=== PATIENT | female | born 1990 | race Caucasian/White ===

== ENCOUNTER 2020-01-02 09:25 | Inpatient (IN) | payer BC ==
[~2020-01-02] VITALS: Ht 160 cm; Wt 60.2 kg
[~2020-01-02 09:25] MED LIST: ONDA8TAB9 PO
[2020-01-02] MEDS ORDERED: acetaminophen 325mg tablet PO PRN ×2 (11:35)
[2020-01-02] MEDS ORDERED: mag hydrox/Alum hydrox/simeth 30ml oral suspension PO PRN (11:35)
[2020-01-02] MEDS ORDERED: loperamide 2mg capsule PO PRN (11:35)
[2020-01-02] MEDS ORDERED: magnesium hydroxide 30ml (MOM) UD suspension PO PRN (11:35)
[2020-01-02] MEDS ORDERED: PANT40TA4 PO (12:53)
[2020-01-02] MEDS ORDERED: LAMO100T PO (12:53)
[2020-01-02] MEDS ORDERED: LISD40CA PO (12:53)
[2020-01-02] MEDS ORDERED: SERT100T10 PO (12:53)
[2020-01-02] MEDS ORDERED: LEVO15TA6 PO (12:53)
[2020-01-02] MEDS: LORazepam 1 MG tablet PO PRN ×2 (12:55→20:33)
[2020-01-02 13:21] VITALS: BP 93/41
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
[2020-01-02 20:00] VITALS: BP 118/61
[2020-01-02] MEDS ORDERED: albuterol 2.5 MG/3 ML nebule NEB PRN (20:25)
[2020-01-02] MEDS: Melatonin 3mg tablet PO SCH (20:33)
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
[2020-01-03 07:51] VITALS: BP 111/67
[2020-01-03] MEDS ORDERED: lamoTRIgine 100mg tablet PO SCH (08:00)
[2020-01-03] MEDS: sertraline 50mg tablet PO SCH (08:14)
[2020-01-03] MEDS: pantoprazole 40mg Tablet.DR PO SCH (08:14)
[2020-01-03] MEDS: sertraline 25mg tablet PO SCH (08:14)
[2020-01-03 08:54] LABS: HEMOGLOBIN A1C 5.5 % (4.5-6.2)
[2020-01-03 09:01] LABS: CHOL/HDL RATIO 5.1 (0.00-4.99); CHOLESTEROL 229 MG/DL (0-200); HDL CHOLESTEROL 45 MG/DL (35-60); LDL CHOLESTEROL 149 MG/DL (50-100); TRIGLYCERIDES 133 MG/DL (20-135)
[2020-01-03] MEDS: LORazepam 1 MG tablet PO PRN ×2 (14:46→20:29)
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
[2020-01-03] MEDS: LEVOMEFOLATE CALCIUM PO SCH (18:41)
[2020-01-03 20:00] VITALS: BP 108/60
[2020-01-03] MEDS: Melatonin 3mg tablet PO SCH (20:29)
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
[2020-01-04 07:53] VITALS: BP 113/73
[2020-01-04] MEDS: pantoprazole 40mg Tablet.DR PO SCH (07:56)
[2020-01-04] MEDS: sertraline 25mg tablet PO SCH (07:56)
[2020-01-04] MEDS: sertraline 50mg tablet PO SCH (07:56)
[2020-01-04] MEDS: lamoTRIgine 100mg tablet PO SCH (07:56)
[2020-01-04] MEDS: LEVOMEFOLATE CALCIUM PO SCH (07:57)
[2020-01-04] MEDS: LORazepam 1 MG tablet PO PRN ×2 (07:59→15:29)
[2020-01-04] MEDS ORDERED: pantoprazole 40mg Tablet.DR PO SCH (08:00)
[2020-01-04] MEDS ORDERED: sertraline 50mg tablet PO SCH (08:00)
[2020-01-04] MEDS ORDERED: LORazepam 1 MG tablet PO ONE (12:45)
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
[2020-01-04 20:00] VITALS: BP 113/70
[2020-01-04] MEDS: Melatonin 3mg tablet PO SCH (20:06)
[2020-01-04] MEDS ORDERED: prazosin 1mg capsule PO SCH (21:00)
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
[2020-01-05] MEDS: LORazepam 1 MG tablet PO PRN ×4 (02:14→20:16)
[2020-01-05 07:55] VITALS: BP 136/61
[2020-01-05] MEDS: pantoprazole 40mg Tablet.DR PO SCH (07:55)
[2020-01-05] MEDS: lamoTRIgine 100mg tablet PO SCH (07:55)
[2020-01-05] MEDS: sertraline 50mg tablet PO SCH (07:56)
[2020-01-05] MEDS: sertraline 25mg tablet PO SCH (07:56)
[2020-01-05] MEDS: LEVOMEFOLATE CALCIUM PO SCH (07:56)
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
--- NOTE | 2020-01-05 11:27 | NUR ---
This Clinician provided individual therapeutic services to Client within the medical milieu in her room on 01/05/20. This Clinician introduced himself to Client. This Clinician asked probing questions about Client's current behaviors and symptomatology. Client reported frustration that she was still in the unit and unable to go home. Client tearfully reported that she wanted to leave so that she could be with her two year old Son. This Clinician asked Client a scaling question regarding her level of depression with 1 being low, and 10 being high. Client reported her subjective number as a 8, which she decribed as feeling like a heavy sadness. Per this Clinician's impression, Client presented with labile affect, quickly transitioning from observed irritability to showing marked feelings of sadness, distress, and hopeless AEB tearful presentation. As a suggested CBT reframe, this Clinician encouraged Client to identify "Any hopeful, or positive thoughts" that she could identify to lower her level of depression, and from an 8 to a 7, while also making attempts to validate her subjective distress at being uncomfortable in her surroundings in order to develop initial rapport with Client. Aaron Aleman MA, JUANJO Addendum: 01/05/20 at 1137 by Aaron Aleman SS Amended: Links added.
[2020-01-05] MEDS ORDERED: hydrOXYzine 25 MG tablet PO ONE (15:40)
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
[2020-01-05] MEDS: Melatonin 3mg tablet PO SCH (20:16)
[2020-01-05 20:23] VITALS: BP 126/75
[2020-01-05] MEDS ORDERED: prazosin 1mg capsule PO SCH (21:00)
[2020-01-05] MEDS: hydrOXYzine 25 MG tablet PO PRN (22:27)
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
[2020-01-06] MEDS: lamoTRIgine 100mg tablet PO SCH (07:47)
[2020-01-06] MEDS: sertraline 50mg tablet PO SCH (07:47)
[2020-01-06] MEDS: sertraline 25mg tablet PO SCH (07:47)
[2020-01-06] MEDS: pantoprazole 40mg Tablet.DR PO SCH (07:47)
[2020-01-06] MEDS: hydrOXYzine 25 MG tablet PO PRN (07:49)
[2020-01-06] MEDS: LEVOMEFOLATE CALCIUM PO SCH (08:00)
[2020-01-06 08:12] VITALS: BP 116/60
--- NOTE | 2020-01-06 09:08 | NUR ---
DISCHARGE PLANNING Meg is going home today and her mother is able to pick her up. Scheduled her follow up appts with her PCP for tomorrow and with Dr Mcgee for 01/28/20. There is a wait-list at [facility] for therapy. Suggested Meg call her insurance to find out what therapists are available for her to see. JUANJO Coyne
--- NOTE | 2020-01-06 10:00 | NUR ---
Process Group: This Clinicians goal in providing this process group was to: (1) orient the Patients to this Clinicians rules and expectations for group conduct. (2) engage in personal introductions in order to develop rapport with patients in the group milieu, (3) and encourage Patients to process their thoughts and feelings regarding their time on the unit and the resumption of group therapy on the unity. More specifically, this Clinician emphasized the importance of maintaining patients confidentiality in the group milieu. Also this Clinician encourage the use of I statements, when expressing frustration instead of specifically referencing other patients in the group as the potential source of their frustration in order to avoid unnecessary conflict. This Clinician asked Patients to share their name and something about them that they would feel comfortable sharing with the group. The majority of time was spent processing Clients thoughts and feelings regarding their individual experiences in the medical milieu and their thoughts and feelings about the resumption of therapy in the group setting. Patient presented as open, cooperative and responsive to the interventions shared in the group milieu. Moreover, per this Clinician's impression, she was a stabilizing presence in redirecting one Patient seated next to her who presented with some delusions of grandeur, which led to him being less intrusive during the group process. In the context of processing her thoughts and feelings, Patient was able to summarize the CBT concept of automatic and/or "hot thoughts," as being initial thoughts that can quickly lead to unwanted episodes of emotional escalation if interventions were not actively utilized to reframe the initial thought if it was unbalanced, unhelpful or irrational. Addendum: 01/06/20 at 1133 by Aaron PICKETT Amended: Links added. Addendum: 01/06/20 at 1135 by Aaron PICKETT Aaron Aleman MA, JUANJO
[2020-01-06] MEDS ORDERED: SERT100T10 PO (12:07)
[2020-01-06] MEDS ORDERED: SERT25TA5 PO (12:07)
[2020-01-06] MEDS ORDERED: PRAZ1CAP5 PO (12:07)
[2020-01-06] MEDS ORDERED: HYDR-3686 PO (12:07)
[2020-01-06] MEDS: LORazepam 1 MG tablet PO PRN (12:34)
--- NOTE | 2020-01-06 12:41 | NUR ---
Discharge Note: Discharge instructions reviewed with the pt. including f/u appt and medications which were called in to the pt pharmacy. Pt verbalized understanding and signed and copy given to pt along with smoking cessation information. All belongings returned to the pt including medications from pharmacy she came in with. Pt denies depression this am and denies suicidal ideation and is happy to be going home. Pt escorted from unit at 1243 to her mom who was waiting downstairs.
== END 2020-01-06 12:43 | disposition home or self-care (01) | DRG 885 ==
LOC: EEVIPCON → ADULT MH 09:25 → UNDOADMIN 11:20 → ADULT MH 01-05 21:00
PROVIDERS: ADMIT Psychiatry & Neurology Psychiatry; ATTEND Psychiatry & Neurology Psychiatry
DX: F33.1 Major depressive disorder, recurrent, moderate (principal); R45.851 Suicidal ideations; F43.10 Post-traumatic stress disorder, unspecified; F12.90 Cannabis use, unspecified, uncomplicated; J45.909 Unspecified asthma, uncomplicated; K21.9 Gastro-esophageal reflux disease without esophagitis; G43.909 Migraine, unspecified, not intractable, without status migrainosus; Z79.899 Other long term (current) drug therapy
CPT/HCPCS: 36415; 80061; 83036; 87081; 94640; 94760; Q0177

== ENCOUNTER 2021-03-14 12:39 | Emergency (ER) | payer BC ==
[~2021-03-14] VITALS: Ht 160 cm; Wt 62.0 kg
[~2021-03-14 12:39] MED LIST changes: +HYDR-3686 PO; +LAMO100T PO; +LEVO15TA6 PO; +LISD40CA PO; -ONDA8TAB9 PO; +PANT40TA54 PO; +PRAZ1CAP5 PO; +SERT-432 PO; +SERT-434 PO
[2021-03-14 13:02] VITALS: BP 134/80
[2021-03-14 13:37] LABS: BASOPHILS # (AUTO) 0.1 X10'3 (0-0.2); BASOPHILS % (AUTO) 0.8 % (0-1); EOSINOPHILS # (AUTO) 0.2 X10'3 (0-0.9); EOSINOPHILS % (AUTO) 3.5 % (0-6); HEMOGLOBIN 14.3 g/dl (12.0-16.0); LYMPHOCYTES # (AUTO) 1.5 X10'3 (1.1-4.8); LYMPHOCYTES % (AUTO) 21.5 % (21-51); MEAN CORPUSCULAR HEMOGLOBIN 29.8 PG (27.0-31.0); MEAN CORPUSCULAR HGB CONC 33.1 g/dL (33.0-36.5); MEAN CORPUSCULAR VOLUME 89.9 FL (78-98); MEAN PLATELET VOLUME 7.5 FL (7.4-10.4); MONOCYTES # (AUTO) 0.5 X10'3 (0-0.9); MONOCYTES % (AUTO) 7.1 % (2-12); NEUTROPHILS # (AUTO) 4.6 X10'3 (1.8-7.7); NEUTROPHILS % (AUTO) 67.1 % (42-75); PLATELET COUNT 421 X10'3 (140-440); RED BLOOD COUNT 4.79 X10'6 (4.20-5.60); RED CELL DISTRIBUTION WIDTH 13.4 % (11.5-14.5); WHITE BLOOD COUNT 6.9 X10'3 (4.5-11.0)
[2021-03-14 13:56] LABS: ALANINE AMINOTRANSFERASE 19 U/L (12-78); ALBUMIN 4.2 G/DL (3.4-5.0); ALBUMIN/GLOBULIN RATIO 1.1 (1.1-1.5); ALKALINE PHOSPHATASE 60 IU/L (46-116); ANION GAP 10 (8-16); ASPARTATE AMINO TRANSFERASE 9 U/L (10-37); BILIRUBIN,TOTAL 0.3 MG/DL (0.1-1.0); BLOOD UREA NITROGEN 7 MG/DL (7-18); BUN/CREATININE RATIO 8.4 (6.6-38.0); CALCIUM 8.6 MG/DL (8.5-10.1); CHLORIDE 103 MMOL/L (99-107); CREATININE 0.83 MG/DL (0.40-0.90); GLUCOSE 92 MG/DL (70-104); LIPASE 106 U/L (73-393); POTASSIUM 3.8 MMOL/L (3.5-5.1); SODIUM 141 MMOL/L (135-145); TOTAL CARBON DIOXIDE 28.4 MMOL/L (24-32); eGFR 81 ML/MIN
[2021-03-14 15:14] LABS: COLOR,URINE YELLOW (Yellow); GLUCOSE, URINE NEGATIVE (Neg); KETONES,URINE NEGATIVE (Neg); LEUKOCYTE ESTERASE ,URINE NEGATIVE (Neg); NITRITES, URINE NEGATIVE (Neg); OCCULT BLOOD,URINE NEGATIVE (Neg); PROTEIN,URINE NEGATIVE (Neg); URINE HCG NEGATIVE (NEG); UROBILINOGEN,URINE 0.2 E.U/dL (0.2-1.0)
[2021-03-14 15:44] LABS: UA COLLECTION TYPE CLN CATCH MIDSTREAM
[2021-03-14 15:45] LABS: CLARITY,URINE CLEAR (Clear)
[2021-03-15] MEDS ORDERED: NAPR-56 PO (05:30)
== END 2021-03-14 21:41 | disposition left against medical advice (07) ==
LOC: ER 12:40
DX: R10.9 Unspecified abdominal pain (principal); Z53.21 Procedure and treatment not carried out due to patient leaving prior to being seen by health care provider
CPT/HCPCS: 36415; 80053; 81003; 81025; 83690; 85025

== ENCOUNTER 2021-03-15 01:16 | Emergency (ER) | payer BC ==
[~2021-03-15] VITALS: Ht 160 cm; Wt 61.8 kg
[2021-03-15 04:33] LABS: URINE AMPHETAMINE SCREEN POSITIVE (Neg); URINE BARBITUATE SCREEN NEGATIVE (Neg); URINE BENZODIAZEPINES SCREEN NEGATIVE (Neg); URINE CANNABINOID SCREEN POSITIVE (Neg); URINE COCAINE SCREEN NEGATIVE (Neg); URINE METHADONE SCREEN NEGATIVE (Neg); URINE OPIATE SCREEN NEGATIVE (Neg); URINE PHENCYCLIDINE SCREEN NEGATIVE (Neg)
[2021-03-15 05:25] LABS: CLARITY,URINE CLEAR (Clear); COLOR,URINE YELLOW (Yellow); GLUCOSE, URINE NEGATIVE (Neg); KETONES,URINE TRACE mg/dl (Neg); LEUKOCYTE ESTERASE ,URINE NEGATIVE (Neg); NITRITES, URINE NEGATIVE (Neg); OCCULT BLOOD,URINE NEGATIVE (Neg); PROTEIN,URINE NEGATIVE (Neg); UROBILINOGEN,URINE 0.2 E.U/dL (0.2-1.0)
[2021-03-15 05:26] LABS: UA COLLECTION TYPE CLN CATCH MIDSTREAM
[2021-03-15] MEDS ORDERED: ketorolac trometh. 30mg/ml inj. IM ONE (05:30)
[2021-03-15] MEDS ORDERED: NAPR-56 PO (05:30)
[2021-03-15 05:54] VITALS: BP 108/71
== END 2021-03-15 05:56 | disposition home or self-care (01) ==
LOC: ER 01:16
DX: R10.11 Right upper quadrant pain (principal); R10.12 Left upper quadrant pain; R11.0 Nausea; R50.9 Fever, unspecified; F41.9 Anxiety disorder, unspecified; F12.90 Cannabis use, unspecified, uncomplicated; Z79.899 Other long term (current) drug therapy
CPT/HCPCS: 80305; 81003; 96372; 99285; J1885

== ENCOUNTER 2022-07-21 13:07 | Emergency (ER) | payer BC ==
[~2022-07-21] VITALS: Ht 157.5 cm; Wt 56.8 kg
[2022-07-21 13:35] VITALS: BP 122/69
[2022-07-21 14:22] LABS: BASOPHILS % (AUTO) 0.1 % (0-1); EOSINOPHILS % (AUTO) 0 % (0-6); HEMATOCRIT 41.1 % (35.0-45.0); HEMOGLOBIN 13.8 g/dl (12.0-16.0); LYMPHOCYTES # (AUTO) 0.3 X10'3 (1.1-4.8); LYMPHOCYTES % (AUTO) 4.5 % (21-51); MEAN CORPUSCULAR HEMOGLOBIN 30.7 PG (27.0-31.0); MEAN CORPUSCULAR HGB CONC 33.5 g/dL (33.0-36.5); MEAN CORPUSCULAR VOLUME 91.4 FL (78-98); MEAN PLATELET VOLUME 7.2 FL (7.4-10.4); MONOCYTES # (AUTO) 0.3 X10'3 (0-0.9); MONOCYTES % (AUTO) 4.2 % (2-12); NEUTROPHILS # (AUTO) 6.4 X10'3 (1.8-7.7); NEUTROPHILS % (AUTO) 91.2 % (42-75); PLATELET COUNT 412 X10'3 (140-440)
[2022-07-21 14:33] LABS: ALANINE AMINOTRANSFERASE 20 U/L (12-78); ALKALINE PHOSPHATASE 59 IU/L (46-116); ANION GAP 11 (8-16); ASPARTATE AMINO TRANSFERASE 21 U/L (10-37); BILIRUBIN,TOTAL 0.4 MG/DL (0.1-1.0); BLOOD UREA NITROGEN 12 MG/DL (7-18); BUN/CREATININE RATIO 16.4 (6.6-38.0); CALCIUM 9.6 MG/DL (8.5-10.1); CHLORIDE 103 MMOL/L (99-107); CREATININE 0.73 MG/DL (0.40-0.90); GLUCOSE 139 MG/DL (70-104); LIPASE 77 U/L (73-393); POTASSIUM 3.7 MMOL/L (3.5-5.1); SODIUM 139 MMOL/L (135-145); TOTAL CARBON DIOXIDE 25.5 MMOL/L (24-32); TOTAL PROTEIN 8.2 G/DL (6.4-8.2); eGFR > 90 ML/MIN
[2022-07-21 14:47] LABS: CLARITY,URINE SLIGHTLY CLOUDY (Clear); COLOR,URINE YELLOW (Yellow); GLUCOSE, URINE NEGATIVE (Neg); KETONES,URINE 15 mg/dl (Neg); LEUKOCYTE ESTERASE ,URINE NEGATIVE (Neg); NITRITES, URINE NEGATIVE (Neg); OCCULT BLOOD,URINE SMALL (Neg); PH,URINE 5.5 (4.8-8.0); PROTEIN,URINE TRACE mg/dl (Neg); UROBILINOGEN,URINE 0.2 E.U/dL (0.2-1.0)
[2022-07-21 14:52] LABS: UA COLLECTION TYPE NON-SPECIFIED
[2022-07-21 14:53] LABS: AMORPHOUS URATES 1+; BACTERIA,URINE FEW /HPF (Neg); MUCUS STRANDS MANY /LPF (Neg); RBC,URINE 0-2 /HPF (0-2); SQUAMOUS EPITHELIAL CELL,UR MODERATE /LPF (FEW); WBC,URINE 0-4 /HPF (0-4)
[2022-07-21 14:59] LABS: URINE HCG NEGATIVE (NEG)
[2022-07-21] MEDS ORDERED: ondansetron/PF 4mg/2ml inj IV ONE (16:05)
[2022-07-21] MEDS ORDERED: normal saline 1000ML IV soln IVB ONE (16:05)
[2022-07-21] MEDS ORDERED: ONDA8TAB13 PO ×2 (18:19→18:32)
[2022-07-21] MEDS ORDERED: proCHLORperazine 10mg tablet PO ONE (18:30)
[2022-07-21] MEDS ORDERED: diphenhydrAMINE 25mg capsule PO ONE (18:30)
== END 2022-07-21 19:30 | disposition home or self-care (01) ==
LOC: ER 13:08
DX: A08.4 Viral intestinal infection, unspecified (principal); Z20.822 Contact with and (suspected) exposure to COVID-19; F12.10 Cannabis abuse, uncomplicated; F41.9 Anxiety disorder, unspecified; Z79.1 Long term (current) use of non-steroidal anti-inflammatories (NSAID); Z79.899 Other long term (current) drug therapy
CPT/HCPCS: 36415; 71046; 80053; 81001; 81025; 83690; 85025; 87502; 87503; 87635; 96361; 96374; 99284; C9803; J2405; J7030; Q0163; Q0164